=== PATIENT | female | born 1975 | race Two or more races ===

== ENCOUNTER 2017-12-02 23:12 | Emergency (ER) | payer OTHER ==
[~2017-12-02] VITALS: Ht 167.6 cm; Wt 65.8 kg
[2017-12-02 23:14] VITALS: BP 152/88
[2017-12-03] MEDS ORDERED: ONDANSETRON 4 MG TAB.RAPDIS ONE (00:42)
[2017-12-03] MEDS ORDERED: HYDROMORPHONE 1 MG/1 ML DISP.SYRIN ONE (00:42)
--- NOTE | 2017-12-03 00:45 | NUR ---
PT MEDICATED ORDERED.
[2017-12-03] MEDS ORDERED: ONDANSETRON 4 MG TAB.RAPDIS PO ONE (01:00)
[2017-12-03] MEDS ORDERED: HYDROMORPHONE 1 MG/1 ML DISP.SYRIN IM ONE (01:00)
== END 2017-12-03 02:48 | disposition home or self-care (01) ==
LOC: ER 23:13
DX: M54.5 Low back pain (principal)
CPT/HCPCS: 96372; 99283; A4606; J1170; Q0162; Z7610